=== PATIENT | male | born 1955 ===

== ENCOUNTER 2016-12-19 06:09 | Inpatient (IN) | payer OTHER ==
[2016-12-16 15:59] VITALS: BMI 25.7
[2016-12-19] MEDS ORDERED: Lactated Ringer's 1,000 ML IV ONE ×3 (07:00→12:15)
[2016-12-19] MEDS ORDERED: Succinylcholine 200 mg/10 ml Inj IV ONE (07:19)
[2016-12-19] MEDS ORDERED: Propofol 10 mg/ml Inj (20 ML) ONE (07:19)
[2016-12-19] MEDS ORDERED: Phenylephrine 10 mg/ml Inj ONE (07:19)
[2016-12-19] MEDS ORDERED: ePHEDrine 50 mg/ml Inj ONE (07:19)
[2016-12-19] MEDS ORDERED: Midazolam 2 MG/2 ML VIAL ONE (07:19)
[2016-12-19] MEDS ORDERED: Vecuronium 10 mg Inj ONE (07:21)
[2016-12-19] MEDS ORDERED: Absorbable Gelatin Sponge Size 100 ONE (07:24)
[2016-12-19] MEDS ORDERED: Thrombin Topical 5,000 IU Spray Kit ONE (07:24)
[2016-12-19] MEDS ORDERED: Bacitracin Ointment 30 GM TUBE ONE (07:25)
--- NOTE | 2016-12-19 07:32 | CP.PCM.HP ---
History of Present Illness - History of Present Illness History of Present Illness: CC: "I am having a knee surgery" HPI: Patient is a 61 YO Male with PMH of depression and arthritis is seen in [facility] unit for a procedure this AM. Patient had a R TKA in 2014 due to complications of arthritis but since the procedure the pt has been experiencing pain during ambulating, and has had limited range of motion in the affected knee. This AM, pt is scheduled for a revision of R TLA with Dr. Lizama. Denies chest pain, dyspnea, headache, dizziness, n/v/d/c. Pt is currently afebrile, and vs remain stable. Pt endorses feeling nervous because of his upcoming procedure. PMH: depression and arthritis PSH: R TKA 2014, cochlear surgery in the past SH: lives at home with , denies smoking, and illicit use of drugs FH: not sig Allergies: NKDA Present on Admission - Present on Admission Any Indicators Present on Admission: No Review of Systems - Constitutional Constitutional: As Per HPI - EENT Eyes: absent: Blurred Vision, Pain Ears: absent: Dizziness - Cardiovascular Cardiovascular: absent: Chest Pain, Dyspnea, Palpitations - Respiratory Respiratory: absent: Cough, Dyspnea - Gastrointestinal Gastrointestinal: absent: Abdominal Pain, Diarrhea, Vomiting - Genitourinary Genitourinary: absent: Difficulty Urinating, Dysuria - Musculoskeletal Musculoskeletal: absent: Back Pain, Limited Range of Motion - Neurological Neurological: absent: Dizziness, Headaches - Endocrine Endocrine: absent: Palpitations Past Patient History - Past Medical History & Family History Past Medical History?: Yes - Past Social History Smoking Status: Never Smoked Alcohol: Occasional Drugs: Denies Home Situation {Lives}: With Family - CARDIAC Hx Cardiac Disorders: No - PULMONARY Hx Respiratory Disorders: No - NEUROLOGICAL Hx Neurological Disorder: No - HEENT Hx HEENT Problems: Yes Hx Cataracts: Yes Hx Deafness: Yes - RENAL Hx Chronic Kidney Disease: No - ENDOCRINE/METABOLIC Hx Endocrine Disorders: No - HEMATOLOGICAL/ONCOLOGICAL Hx Blood Disorders: No - INTEGUMENTARY Hx Dermatological Problems: No - MUSCULOSKELETAL/RHEUMATOLOGICAL Hx Musculoskeletal Disorders: Yes Hx Arthritis: Yes - GASTROINTESTINAL Hx Gastrointestinal Disorders: No - GENITOURINARY/GYNECOLOGICAL Hx Genitourinary Disorders: No - PSYCHIATRIC Hx Psychophysiologic Disorder: Yes Hx Anxiety: Yes Hx Depression: Yes - SURGICAL HISTORY Hx Surgeries: Yes Hx Orthopedic Surgery: Yes (right total knee replacement) Other/Comment: back surgery. left ear implant - ANESTHESIA Hx Anesthesia: Yes Hx Anesthesia Reactions: No Hx Malignant Hyperthermia: No Has any member of the family had a problem w/ anesthesia?: No Meds Allergies/Adverse Reactions: Allergies Allergy/AdvReac Type Severity Reaction Status Date / Time No Known Allergies Allergy Verified 12/16/16 15:59 Physical Exam - Head Exam Head Exam: ATRAUMATIC, NORMOCEPHALIC - Eye Exam Eye Exam: EOMI, Normal appearance - ENT Exam ENT Exam: Mucous Membranes Moist - Respiratory Exam Respiratory Exam: Clear to Auscultation Bilateral. absent: Rales, Wheezes - Cardiovascular Exam Cardiovascular Exam: REGULAR RHYTHM, +S1, +S2 - GI/Abdominal Exam GI & Abdominal Exam: Hyperactive Bowel Sounds, Soft. absent: Distended, Guarding, Tenderness - Extremities Exam Extremities exam: Positive for: normal capillary refill, normal inspection. Negative for: pedal edema Additional comments: patient has a old anterior surgical scar from R TKA. well healed. limiting ROM in the R knee. Pain with flexion. - Neurological Exam Neurological exam: Alert, Oriented x3 - Psychiatric Exam Psychiatric exam: Normal Affect, Normal Mood Additional comments: Nervous for upcoming surgery - Skin Skin Exam: Dry, Intact, Normal Color, Warm Results - Vital Signs Recent Vital Signs: Last Vital Signs Temp 98.6 F 12/19/16 06:45 Pulse 73 12/19/16 06:45 Resp 18 12/19/16 06:45 BP 138/91 H 12/19/16 06:45 Pulse Ox 98 12/19/16 06:45 Assessment & Plan - Assessment and Plan (Free Text) Assessment: Patient is a 61 YO Male with PMH of depression and arthritis is seen in [facility] unit for a procedure this AM. Patient had a R TKA in 2014 due to complications of arthritis but since the procedure the pt has been experiencing pain during ambulating, and has had limited range of motion in the affected knee. This AM, pt is scheduled for a revision of R TLA with Dr. Lizama. Denies chest pain, dyspnea, headache, dizziness, n/v/d/c. Pt is currently afebrile, and vs remain stable. Pt endorses feeling nervous because of his upcoming procedure. EKG seen in chart is NSR with normal a HR No acute findings in CBC, BMP. Lipid panel shows dyslipidemia. Admit pt to [facility] 1. Revision of R TKA - pt is able to ambulate without assistance at home, limited by R knee pain - he is going for a moderate risk surgery and is a low cardiovascular risk pt. - pain medications 2. Depression - start home medications 3. DVT prophylaxis - start Lovenox post procedure
[2016-12-19] MEDS ORDERED: Dexamethasone 4 mg/1 ml ONE ×2 (07:45→09:24)
[2016-12-19 07:59] LABS: SQUAMOUS EPITHIAL < 1 /hpf (0-5); URINE BILIRUBIN NEGATIVE (NEGATIVE); URINE BLOOD MODERATE (NEGATIVE); URINE CLARITY CLEAR (Clear); URINE COLOR YELLOW (YELLOW); URINE GLUCOSE (UA) NEG (Normal); URINE LEUKOCYTE ESTERASE NEG Leu/uL (Negative); URINE NITRATE NEGATIVE (NEGATIVE); URINE PROTEIN NEGATIVE (NEGATIVE); URINE UROBILINOGEN 0.2-1.0 mg/dL (0.2-1.0)
[2016-12-19] MEDS ORDERED: Sodium Chloride 0.9% 1,000 ML IV SCH (08:00)
[2016-12-19] MEDS ORDERED: Sodium Chloride 0.9% 100 ML IV ONE (08:30)
[2016-12-19] MEDS ORDERED: Enoxaparin 40 mg Syringe SC SCH (09:00)
[2016-12-19] MEDS ORDERED: Pantoprazole 40 mg EC Tab PO SCH (09:00)
[2016-12-19 09:41] LABS: FLUID TYPE SYNOVIAL FLUID
[2016-12-19] MEDS ORDERED: Bacitracin 50,000 UNIT in SODIUM CHLORIDE 3,000 ML IR ONE (10:00)
[2016-12-19 10:31] LABS: FLUID TYPE SYNOVIAL FLUID
[2016-12-19 10:46] LABS: SF GROSS APPEARANCE CLOUDY (CLEAR); SYNOVIAL FLUID COMMENT SLIGHLY BLOODY
[2016-12-19 10:47] LABS: SYNOVIAL FLUID MONO/MACROPHAGE 12 % (0-0)
[2016-12-19 10:54] LABS: SF GROSS APPEARANCE CLEAR (CLEAR); SYNOVIAL FLUID COMMENT COLORLESS
[2016-12-19 11:54] LABS: SYNOVIAL FLUID MONO/MACROPHAGE 3 % (0-0)
[2016-12-19] MEDS ORDERED: Neostigmine Methylsulfate 2 MG/2 ML ML IV ONE (12:52)
[2016-12-19] MEDS ORDERED: Lactated Ringer's 1,000 ML IV SCH (13:13)
--- NOTE | 2016-12-19 14:02 | PCM.ANESB3 ---
Femoral Nerve Block - Femoral Nerve Block Date of Procedure: 12/19/16 Anesthesiologist: Julissa Mills Pre-Procedure Diagnosis: Failed Total Knee Revision Procedure Performed: Femoral Nerve Block Right - Procedure Femoral Nerve Block: The procedure was explained to the patient that it is for the post-operative pain management. Consent was obtained after a thorough discussion with the patient regarding the benefits and possible complications of local anesthetic block of the femoral nerve at the inguinal crease area. The patient was brought to the operating room and standard monitors were applied. Time-out was held with the circulating nurse to confirm the correct surgery and the appropriate block. After applying oxygen by nasal cannula and administering IV Sedation, patient was placed in supine position with fully extended lower extremities and the groin exposed. The femoral artery was then carefully palpated. The ultrasound transducer was then applied to this area in the transverse plane and the femoral nerve was visualized lateral to the femoral artery and underneath the fascia iliaca. After thorough identification, the inguinal crease area was prepped with Betadine solution three times and 1 % Lidocaine was injected subcutaneously for topical anesthesia. At this point, a #22 gauge Stimuplex 2-inch needle was inserted immediately lateral to the femoral artery pulse at the inguinal crease and advanced perpendicularly. The needle was inserted to the ultrasound transducer in-plane towards the femoral nerve in a [id number] direction. Needle advancement was performed carefully under direct ultrasound visualization. Nerve stimulator was used and twitch of the quadriceps muscle was obtained at current of __0.4___ MA. After negative aspiration, _15cc of _0.5% bupivacaine was injected. Under ultrasound guidance the local anesthetics were observed spreading below fascia iliaca and around the femoral nerve. The needle was removed intact and sterile dressing was applied. The patient had stable vital signs, was conscious and in no apparent distress. The patient tolerated the femoral nerve block well with stable vital signs and was prepared for subsequent surgery.
--- NOTE | 2016-12-19 15:00 | RAD ---
PROCEDURE: Right Knee Radiographs. HISTORY: post revision right TKR COMPARISON: None. FINDINGS: BONES: Status post revision of total knee arthroplasty. An intramedullary marcia traverses the midline knee joint. There are postsurgical changes of cemented total knee arthroplasty. There are 2 metallic screws in the medial tibial plateau. Bone alignment and mineralization are normal. There is no acute fracture or bone destruction. JOINTS: Status post TKA. JOINT EFFUSION: There is postoperative air in the periarticular soft tissues and anterior knee joint. OTHER FINDINGS: Skin chris are seen in mean the midline anteriorly. IMPRESSION: Status post revision of total knee arthroplasty, expected post operative changes without immediate complications.
--- NOTE | 2016-12-19 15:31 | PCM.SURG1 ---
Surgeon's Initial Post Op Note - Surgeon's Notes Surgeon: Alda Heading Matcher And Assembler: LEAH Willingham/2nd assist Jcarlos Dubois Type of Anesthesia: General Endo, Block Regional Anesthesia Administered By: Dr Julissa Mills/DR Asad rick Pre-Operative Diagnosis: Failed/Painful TKR R knee Operative Findings: Lossened femoral compopnenet (aseptic lossening). damage/ burnished patella componet. tricomparmtneal synovitis. posterior capsular contractrure. lateral patella retinacul;ar contracture Post-Operative Diagnosis: as above Operation Performed: Revision TKR R kbnee- 3compnents. ORIF tibial plateau faracture (medial). rem,oval; 3 TKR compnents. anterior and posterior synovoits. posterior cap[sular relaease. lateral patella release Specimen/Specimens Removed: synovium/failed TKR components. posterior capsule/ lateral patell retinaculum Estimated Blood Loss: EBL {In ML}: 100 Blood Products Given: N/A Drains Used: Hemovac Post-Op Condition: Fair Date of Surgery/Procedure: 12/19/16 Time of Surgery/Procedure: 09:05 (time in room/anaestjhesia indcuution time 7: 48 time in RR 1310)
--- NOTE | 2016-12-19 16:47 | PCM.ANESB2 ---
Popliteal Nerve Block - Popliteal Nerve Block Date of Procedure: 12/19/16 Anesthesiologist: Julissa Mills Pre-Procedure Diagnosis: Failed Right Total Knee Replacement Procedure Performed: Popliteal Nerve Block Right - Procedure Popliteal Nerve Block: This procedure was explained to the patient that it is for post-operative pain management. Consent was obtained after a thorough discussion with the patient regarding the benefits and possible complications of local anesthetic block of the sciatic nerve at the popliteal level. The patient was brought to the operating room and standard monitors are applied. Time-out was held with the circulating nurse to confirm the correct surgery and the appropriate block. After applying oxygen by nasal cannula and administering IV Sedation, patient's operative leg was gently raised and supported and the groove in between the biceps femoris and vastus lateralis muscles was carefully palpated. The skin approximately 8cm above the popliteal crease was then marked. The ultrasound transducer was then applied to the posterior thigh approximately 8cm above the popliteal crease in the transverse plane and the sciatic nerve before its division was visualized lateral to the popliteal artery and in between the bicep femoris and semimembranosus/semitendinosus muscles. After identification, the lateral portion of the thigh was prepped with Betadine solution three times and Lidocaine 1% was injected subcutaneously for topical anesthesia. At this point, a # 21 gauge Stimuplex insulated 4 inch needle was inserted into pre-marked area and advanced in a perpendicular direction. The needle was inserted above the ultrasound transducer in-plane towards the sciatic nerve in a [id number] direction. Needle advancement was performed carefully under direct ultrasound visualization. Nerve stimulator was used and dorsiflexion of the _right____ foot was elicited at a current of __0.4 MA. After repeated negative aspiration, _15cc of _0.5 % ___bupivacaine was injected. Under ultrasound guidance the local anesthetics were observed tenting the epidural sheath and surrounding the roots of the sciatic nerve. The needle was removed intact and sterile dressing was applied. The patient tolerated the popliteal nerve block well with stable vital signs and was subsequently prepared for the surgery.
[2016-12-19] MEDS: ceFAZolin 2 GM in Sodium Chloride 0.9% 100 ML IVPB SCH (17:58)
[2016-12-20] MEDS: ceFAZolin 2 GM in Sodium Chloride 0.9% 100 ML IVPB SCH ×2 (00:06→09:46)
[2016-12-20 02:10] VITALS: O2SAT 100
--- NOTE | 2016-12-20 08:21 | CP.PCM.PN ---
Subjective - Date & Time of Evaluation Date of Evaluation: 12/20/16 Time of Evaluation: 08:15 - Subjective Subjective: S- pt with minimal post op discomfort Objective - Vital Signs/Intake and Output Vital Signs (last 24 hours): Temp Pulse Resp BP Pulse Ox 97.9 F 75 19 107/65 100 12/20/16 00:00 12/20/16 00:00 12/20/16 00:00 12/20/16 00:00 12/20/16 00:00 - Medications Medications: Current Medications Aripiprazole (Abilify) 10 mg PO DAILY [facility] Clonazepam (Klonopin) 1 mg PO DAILY [facility] Docusate Sodium (Colace) 100 mg PO BID [facility] Home Med (Desvenlafaxine Succinate [Pristiq]) 100 mg PO DAILY [facility] Hydromorphone HCl (Dilaudid 0.2 Mg/Ml Computer Network Engineer) 0 mg IV PRN PRN; Protocol PRN Reason: Pain, moderate (4-7) Last Admin: 12/19/16 15:00 Dose: 0 mg Sodium Chloride (Sodium Chloride 0.9%) 1,000 mls @ 100 mls/hr IV .Q10H [facility] Last Admin: 12/20/16 06:41 Dose: 100 mls/hr Lactated Ringer's (Lactated Ringer's) 1,000 mls @ 75 mls/hr IV .[id number] [facility] Cefazolin Sodium 2 gm/ Sodium (Chloride) 100 mls @ 100 mls/hr IVPB Q8 [facility] Stop: 12/20/16 09:59 Last Admin: 12/20/16 00:06 Dose: 100 mls/hr Ondansetron HCl (Zofran Inj) 4 mg IVP Q6 PRN PRN Reason: Nausea/Vomiting Last Admin: 12/19/16 19:17 Dose: 4 mg Pantoprazole Sodium (Protonix Ec Tab) 40 mg PO DAILY [facility] Quetiapine Fumarate (Seroquel) 50 mg PO DAILY [facility] - Skin Additional comments: Obj Musculoskekltal stance/gait- defrred R knee immobilizer intact dressing dry andf intact orthopedically stable Assessment and Plan - Assessment and Plan (Free Text) Assessment: A- S/P rEVISION TKR P- orthopedically stable physio- toe touch weight bearing with walker active passive ROM (gentle) CPM as per orders
[2016-12-20 08:39] LABS: HEMOGLOBIN 9.6 g/dL (12.0-18.0); MEAN CELL VOLUME 92.7 fl (80.0-94.0); MEAN CORPUSCULAR HEMOGLOBIN 30.9 pg (27.0-31.0); MEAN CORPUSCULAR HGB CONC 33.3 g/dL (33.0-37.0); RBC 3.12 Mil/uL (4.40-5.90); RED CELL DISTRIBUTION WIDTH 13.9 % (11.5-14.5); WHITE BLOOD COUNT 8.8 K/uL (4.8-10.8)
[2016-12-20 08:47] LABS: BLOOD UREA NITROGEN 15 mg/dl (9-20); CALCIUM 7.9 mg/dL (8.4-10.2); GFR AFRICAN-AMERICAN > 60; GFR NON-AFRICAN AMERICAN > 60
[2016-12-20] MEDS ORDERED: Pantoprazole 40 mg EC Tab PO SCH (09:00)
--- NOTE | 2016-12-20 09:41 | CP.PCM.CON ---
History of Present Illness - History of Present Illness History of Present Illness: THE PATIENT IS A 61 YEAR OLD MALE WITH A RIGHT TKR IN 2015 AND HE WAS ADMITTED TO [facility] AND UNDERWENT A REVISION BY DR JASSI ALBERTO. HE ALSO HAS A HISTORY OF BACK PROBLEMS AND DEPRESSION. HE DENIES ANY HISTORY OF HYPERTENSION, CAD OR CHEST PAIN. I WAS ASKED BY DR KEENE TO FOLLOW THE PATIENT. Past Patient History - Past Medical History & Family History Past Medical History?: Yes - Past Social History Smoking Status: Never Smoked Alcohol: Occasional Drugs: Denies Home Situation {Lives}: With Family - CARDIAC Hx Cardiac Disorders: No - PULMONARY Hx Respiratory Disorders: No - NEUROLOGICAL Hx Neurological Disorder: No - HEENT Hx HEENT Problems: Yes Hx Cataracts: Yes Hx Deafness: Yes - RENAL Hx Chronic Kidney Disease: No - ENDOCRINE/METABOLIC Hx Endocrine Disorders: No - HEMATOLOGICAL/ONCOLOGICAL Hx Blood Disorders: No - INTEGUMENTARY Hx Dermatological Problems: No - MUSCULOSKELETAL/RHEUMATOLOGICAL Hx Musculoskeletal Disorders: Yes Hx Arthritis: Yes - GASTROINTESTINAL Hx Gastrointestinal Disorders: No - GENITOURINARY/GYNECOLOGICAL Hx Genitourinary Disorders: No - PSYCHIATRIC Hx Psychophysiologic Disorder: Yes Hx Anxiety: Yes Hx Depression: Yes - SURGICAL HISTORY Hx Surgeries: Yes Hx Orthopedic Surgery: Yes (right total knee replacement) Other/Comment: back surgery. left ear implant - ANESTHESIA Hx Anesthesia: Yes Hx Anesthesia Reactions: No Hx Malignant Hyperthermia: No Has any member of the family had a problem w/ anesthesia?: No Meds Allergies/Adverse Reactions: Allergies Allergy/AdvReac Type Severity Reaction Status Date / Time No Known Allergies Allergy Verified 12/16/16 15:59 - Medications Medications: Current Medications Aripiprazole (Abilify) 10 mg PO DAILY [facility] Clonazepam (Klonopin) 1 mg PO DAILY [facility] Docusate Sodium (Colace) 100 mg PO BID [facility] Home Med (Desvenlafaxine Succinate [Pristiq]) 100 mg PO DAILY [facility] Hydromorphone HCl (Dilaudid 0.2 Mg/Ml Armored Car Guard And Driver) 0 mg IV PRN PRN; Protocol PRN Reason: Pain, moderate (4-7) Last Admin: 12/19/16 15:00 Dose: 0 mg Sodium Chloride (Sodium Chloride 0.9%) 1,000 mls @ 100 mls/hr IV .Q10H [facility] Last Admin: 12/20/16 06:41 Dose: 100 mls/hr Lactated Ringer's (Lactated Ringer's) 1,000 mls @ 75 mls/hr IV .[id number] [facility] Cefazolin Sodium 2 gm/ Sodium (Chloride) 100 mls @ 100 mls/hr IVPB Q8 [facility] Stop: 12/20/16 09:59 Last Admin: 12/20/16 00:06 Dose: 100 mls/hr Ondansetron HCl (Zofran Inj) 4 mg IVP Q6 PRN PRN Reason: Nausea/Vomiting Last Admin: 12/19/16 19:17 Dose: 4 mg Pantoprazole Sodium (Protonix Ec Tab) 40 mg PO DAILY [facility] Quetiapine Fumarate (Seroquel) 50 mg PO DAILY [facility] Physical Exam - Respiratory Exam Respiratory Exam: Clear to Auscultation Bilateral - Cardiovascular Exam Cardiovascular Exam: REGULAR RHYTHM, +S1, +S2 - Additional Findings Additional findings: EKG NSR CXR NAD Results - Vital Signs Recent Vital Signs: Last Vital Signs Temp 98.7 F 12/20/16 08:29 Pulse 67 12/20/16 08:29 Resp 20 12/20/16 08:29 BP 115/66 12/20/16 08:29 Pulse Ox 100 12/20/16 08:29 - Labs Result Diagrams: 12/20/16 07:10 12/20/16 07:10 Labs: Laboratory Results - last 24 hr 12/19/16 12/19/16 12/19/16 07:44 09:35 10:20 WBC RBC Hgb Hct MCV MCH MCHC RDW Plt Count Sodium Potassium Chloride Carbon Dioxide Anion Gap BUN Creatinine Est GFR ( Amer) Est GFR (Non-Af Amer) Random Glucose Calcium Fluid Type Synovial fluid Synovial fluid Synovial WBC 116.0 27.0 Synovial RBC 1611.0 H 864.0 H Synovial Neutrophils 8.0 H 6.0 H Synovial Lymphocytes 30.0 H 11.0 H Synov Monos/Macrophage 12 H 3 H Synovial Fluid Comment Slighly bloody Colorless Blood Type Confirm O POSITIVE 12/20/16 12/20/16 07:10 07:10 WBC 8.8 RBC 3.12 L Hgb 9.6 L Hct 28.9 L MCV 92.7 MCH 30.9 MCHC 33.3 RDW 13.9 Plt Count 188 Sodium 136 Potassium 4.2 Chloride 104 Carbon Dioxide 27 Anion Gap 9 L BUN 15 Creatinine 1.0 Est GFR ( Amer) > 60 Est GFR (Non-Af Amer) > 60 Random Glucose 118 H Calcium 7.9 L Fluid Type Synovial WBC Synovial RBC Synovial Neutrophils Synovial Lymphocytes Synov Monos/Macrophage Synovial Fluid Comment Blood Type Confirm Assessment & Plan - Assessment and Plan (Free Text) Assessment: REVISION OF RIGHT TKR DEPRESSION Plan: FOR SUBACUTE REHAB
[2016-12-20] MEDS ORDERED: Oxycodone/Acetaminophen 5/325 mg Tab PO PRN ×2 (11:32)
--- NOTE | 2016-12-20 13:13 | CP.PCM.PN ---
Subjective - Date & Time of Evaluation Date of Evaluation: 12/20/16 Time of Evaluation: 11:25 - Subjective Subjective: Patient is seen and examined beside this AM. Citizen Of [place] interpretation used ([id number] ). Patient states that he feels well. In no pain this time, pain is well controlled by medication. Denies chest pain, dyspnea, palpations, fever, chills , n/v/c/d. Objective - Vital Signs/Intake and Output Vital Signs (last 24 hours): Temp Pulse Resp BP Pulse Ox 98.7 F 67 20 115/66 100 12/20/16 08:29 12/20/16 08:29 12/20/16 08:29 12/20/16 08:29 12/20/16 08:29 - Medications Medications: Current Medications Aripiprazole (Abilify) 10 mg PO DAILY COUNT INCLUDES THE [facility] Last Admin: 12/20/16 12:19 Dose: Not Given Clonazepam (Klonopin) 1 mg PO DAILY COUNT INCLUDES THE [facility] Last Admin: 12/20/16 09:54 Dose: 1 mg Docusate Sodium (Colace) 100 mg PO BID COUNT INCLUDES THE [facility] Last Admin: 12/20/16 09:56 Dose: 100 mg Home Med (Desvenlafaxine Succinate [Pristiq]) 100 mg PO DAILY COUNT INCLUDES THE [facility] Sodium Chloride (Sodium Chloride 0.9%) 1,000 mls @ 100 mls/hr IV .Q10H COUNT INCLUDES THE [facility] Last Admin: 12/20/16 06:41 Dose: 100 mls/hr Lactated Ringer's (Lactated Ringer's) 1,000 mls @ 75 mls/hr IV .[id number] COUNT INCLUDES THE [facility] Ondansetron HCl (Zofran Inj) 4 mg IVP Q6 PRN PRN Reason: Nausea/Vomiting Last Admin: 12/19/16 19:17 Dose: 4 mg Oxycodone/Acetaminophen (Percocet 5/325 Mg Tab) 1 tab PO Q4 PRN PRN Reason: Pain, moderate (4-7) Stop: 12/23/16 11:33 Oxycodone/Acetaminophen (Percocet 5/325 Mg Tab) 2 tab PO Q6 PRN PRN Reason: Pain, severe (8-10) Stop: 12/23/16 11:33 Pantoprazole Sodium (Protonix Ec Tab) 40 mg PO DAILY COUNT INCLUDES THE [facility] Last Admin: 12/20/16 09:56 Dose: 40 mg Quetiapine Fumarate (Seroquel) 50 mg PO DAILY [facility] - Labs Labs: 12/20/16 07:10 12/20/16 07:10 - Constitutional Appears: Well - Eye Exam Eye Exam: EOMI, Normal appearance - Neck Exam Neck Exam: Full ROM - Respiratory Exam Respiratory Exam: Clear to Ausculation Bilateral, NORMAL BREATHING PATTERN. absent: Wheezes, Respiratory Distress - Cardiovascular Exam Cardiovascular Exam: REGULAR RHYTHM, +S1, +S2 - GI/Abdominal Exam GI & Abdominal Exam: Soft, Normal Bowel Sounds. absent: Guarding, Tenderness - Extremities Exam Extremities Exam: Normal Capillary Refill. absent: Pedal Edema Additional comments: RLE JEFFREY wrap from thigh to ankle. Pt able to dorsiflex and planter flex R feet. ROM intact in LLE. Pedal pulses present bilaterally. - Neurological Exam Neurological Exam: Alert, Awake - Psychiatric Exam Psychiatric exam: Normal Affect, Normal Mood - Skin Skin Exam: Dry, Intact, Normal Color, Warm Assessment and Plan - Assessment and Plan (Free Text) Assessment: Patient is a 61 YO Male with PMH of depression and arthritis is seen in MEDSURG unit for a procedure this AM. Patient had a R TKA in 2014 due to complications of arthritis but since the procedure the pt has been experiencing pain during ambulating, and has had limited range of motion in the affected knee. Pt is currently afebrile, and vs remain stable. EKG seen in chart is NSR with normal a HR No acute findings in CBC, BMP. Lipid panel shows dyslipidemia (labs seen in pt chart). S/p R Revision TKA with Dr. Lizama (12/19) Pt is toe touch weight bearing with walker 1. Revision of R TKA - S/p R TKA - d/c of Dilaudid pump - start Oxycodone Q4 and Q6 - gram stain negative; follow up wound culture - per physical therapy, pt is touch toe weight bearing with walker 2. Depression - continue home medications 3. DVT prophylaxis - continue Lovenox - continue scds 4. Stress ulcer prophylaxis - continue PPI
--- NOTE | 2016-12-20 14:11 | CP.PCM.DIS ---
Provider - Provider Date of Admission: 12/19/16 07:57 Attending physician: Nara Ruffin MD Primary care physician: Dionte Lizama III, MD Time Spent in preparation of Discharge (in minutes): 20 Diagnosis - Discharge Diagnosis (1) Status post revision of total knee Status: Acute Hospital Course - Lab Results Lab Results: Micro Results 12/19/16 Unknown Knee - Right Gram Stain - Final 12/19/16 Unknown Knee - Right Gram Stain - Final 12/19/16 Unknown Knee - Right Gram Stain - Final 12/19/16 Unknown Knee - Right Gram Stain - Final 12/19/16 Unknown Knee - Right Gram Stain - Final 12/19/16 Unknown Knee - Right Gram Stain - Final 12/19/16 Unknown Knee - Right Gram Stain - Final 12/19/16 Unknown Knee - Right Gram Stain - Final 12/19/16 10:20 Synovial Fluid Gram Stain - Final 12/19/16 09:35 Other: Please Indicate Gram Stain - Final Most Recent Lab Values WBC 8.8 K/uL (4.8-10.8) 12/20/16 07:10 RBC 3.12 Mil/uL (4.40-5.90) L 12/20/16 07:10 Hgb 9.6 g/dL (12.0-18.0) L 12/20/16 07:10 Hct 28.9 % (35.0-51.0) L 12/20/16 07:10 MCV 92.7 fl (80.0-94.0) 12/20/16 07:10 MCH 30.9 pg (27.0-31.0) 12/20/16 07:10 MCHC 33.3 g/dL (33.0-37.0) 12/20/16 07:10 RDW 13.9 % (11.5-14.5) 12/20/16 07:10 Plt Count 188 K/uL (130-400) 12/20/16 07:10 Sodium 136 mmol/l (132-148) 12/20/16 07:10 Potassium 4.2 MMOL/L (3.6-5.0) 12/20/16 07:10 Chloride 104 mmol/L (98-107) 12/20/16 07:10 Carbon Dioxide 27 mmol/L (22-30) 12/20/16 07:10 Anion Gap 9 (10-20) L 12/20/16 07:10 BUN 15 mg/dl (9-20) 12/20/16 07:10 Creatinine 1.0 mg/dL (0.8-1.5) 12/20/16 07:10 Est GFR ( Amer) > 60 12/20/16 07:10 Est GFR (Non-Af Amer) > 60 12/20/16 07:10 Random Glucose 118 mg/dL (75-110) H 12/20/16 07:10 Calcium 7.9 mg/dL (8.4-10.2) L 12/20/16 07:10 Urine Color Yellow (YELLOW) 12/19/16 07:46 Urine Clarity Clear (Clear) 12/19/16 07:46 Urine pH 6.0 (5.0-8.0) 12/19/16 07:46 Ur Specific [place] 1.025 (1.003-1.030) 12/19/16 07:46 Urine Protein Negative mg/dL (NEGATIVE) 12/19/16 07:46 Urine Glucose (UA) Neg mg/dL (Normal) 12/19/16 07:46 Urine Ketones 20 mg/dL (NEGATIVE) 12/19/16 07:46 Urine Blood Moderate (NEGATIVE) 12/19/16 07:46 Urine Nitrate Negative (NEGATIVE) 12/19/16 07:46 Urine Bilirubin Negative (NEGATIVE) 12/19/16 07:46 Urine Urobilinogen 0.2-1.0 mg/dL (0.2-1.0) 12/19/16 07:46 Ur Leukocyte Esterase Neg Yuri/uL (Negative) 12/19/16 07:46 Urine RBC (Auto) 18 /hpf (0-3) H 12/19/16 07:46 Urine Microscopic WBC < 1 /hpf (0-5) 12/19/16 07:46 Ur Squamous Epith Cells < 1 /hpf (0-5) 12/19/16 07:46 Fluid Type Synovial fluid 12/19/16 10:20 Synovial WBC 27.0 /mm3 (0.0-150.0) 12/19/16 10:20 Synovial RBC 864.0 /mm3 (0.0-0.0) H 12/19/16 10:20 Synovial Neutrophils 6.0 % (0-0) H 12/19/16 10:20 Synovial Lymphocytes 11.0 % (0-0) H 12/19/16 10:20 Synov Monos/Macrophage 3 % (0-0) H 12/19/16 10:20 Synovial Fluid Comment Colorless 12/19/16 10:20 Blood Type O POSITIVE 12/19/16 06:25 Blood Type Confirm O POSITIVE 12/19/16 07:44 Antibody Screen Negative 12/19/16 06:25 BBK History Checked No verified bt 12/19/16 06:25 - Hospital Course Hospital Course: Patient is a 61 YO Male with PMH of depression and arthritis is seen in [facility] unit for a procedure this AM. Patient had a R TKR in 2014 due to complications of arthritis but since the procedure the pt has been experiencing pain during ambulating, and has had limited range of motion in the affected knee. Patient is seen and examined beside this AM. Latvian interpretation used ([id number]). Patient states that he feels no pain at this time, pain is well controlled by medication. Denies chest pain, dyspnea, palpations, fever, chills, n/v/c/d. Pt is currently afebrile, and VS remain stable. EKG seen in chart is NSR with normal a HR No acute findings in CBC, BMP. Lipid panel shows dyslipidemia (labs seen in pt chart). S/p R Revision TKR with Dr. Lizama (12/19) Pt is toe touch weight bearing with walker 1. Revision of R TKR - S/p R TKR - d/c of Dilaudid pump - start Oxycodone Q4 and Q6 - start colace - gram stain negative; wound culture negative - per physical therapy, pt is touch toe weight bearing with walker - CPM per ortho 2. Depression - continue home medications 3. Acute blood loss anemia - Hb/Hct 9.6/28.9 - medically stable - continue to monitor 4. DVT prophylaxis - continue Lovenox Patient is being transferred to Subacute rehab for physical therapy after revision of R TKR. Discharge Exam - Head Exam Head Exam: ATRAUMATIC, NORMOCEPHALIC - Eye Exam Eye Exam: EOMI, Normal appearance - ENT Exam ENT Exam: Mucous Membranes Moist - Neck Exam Neck exam: Full Rom - Respiratory Exam Respiratory Exam: Clear to PA & Lateral, NORMAL BREATHING PATTERN. absent: Wheezes - Cardiovascular Exam Cardiovascular Exam: REGULAR RHYTHM, +S1, +S2 - GI/Abdominal Exam GI & Abdominal Exam: Firm, Normal Bowel Sounds, Soft. absent: Guarding, Tenderness - Extremities Exam Extremities exam: normal capillary refill, pedal pulses present Additional comments: RLE JEFFREY wrap from thigh to ankle. Pt able to dorsiflex and planter flex R feet. ROM intact in LLE. Pedal pulses present bilaterally. - Neurological Exam Neurological exam: Alert, Oriented x3 - Psychiatric Exam Psychiatric exam: Normal Affect, Normal Mood - Skin Skin Exam: Dry, Intact, Normal Color, Warm Discharge Plan - Discharge Medications Prescriptions: Enoxaparin [Lovenox] 40 mg SQ DAILY #30 syr - Follow Up Plan Condition: GOOD Disposition: REHAB FACILITY/REHAB UNIT Patient education suggested?: Yes Instructions: Revision Total Joint Arthroplasty (DC), Peripheral Nerve Block ( DC) Additional Instructions: Please come back to ED if symptoms worsen Follow up with Dr. Lizama within 10 days Continue working with PT Continue using incentive spirometry Referrals: Dionte Lizama III, MD [Primary Care Provider] -
[2016-12-20 16:04] VITALS: BP 128/75; PULSE 80; RESP 18; TEMP 98.5
--- NOTE | 2016-12-21 02:28 | OP ---
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 POSTOPERATIVE DIAGNOSES: 1. 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 2. Synovitis. 3. 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 PROCEDURE: 1. Revision right total knee replacement. 2. Open reduction and internal fixation of the medial tibial plateau fracture. 3. Removal of total knee components. 4. Synovectomy, anterior and posterior. 5. Posterior capsular release. 6. Lateral patellar retinacular release. SURGEON: Dionte Lizama MD CHARGE ACCOUNT CLERK: ANDREAS Jones SECOND SUBSTATION MAINTENANCE TECHNICIAN: Jcarlos Dubois. TYPE OF ANESTHESIA: General endotracheal anesthesia. ESTIMATED BLOOD LOSS: Approximately 75 mL. COMPLICATIONS: No complications. DRAINS: No drains. OPERATIVE INDICATION: Alvaro Rodarte is a gentleman who was operated on [facility] approximately a year and a half ago for total knee replacement arthroplasty. The patient has had persistent pain since the time of the original surgery/index arthroplasty. The patient is scanned. The patient has significant pain with restricted range of motion, marked tenderness in the area of the femoral component, marked effusion. Pros, cons, risks, and benefits of the surgery approach was discussed. Possibility of mechanical failure, infection, thromboembolic disease, secondary or tertiary surgery was discussed. The patient *------* discomfort and wished the surgery to be accomplished. The concept of possible sepsis is discussed, which will be decided at the time of surgery with a stat Gram-stain, number of white cell per high powered field. DESCRIPTION OF PROCEDURE: After having obtained informed consent in the above fashion in the presence of his through a culturally competent marquetry worker, Geno, after having obtained informed consent after having identified side, site, and procedure and a critical pause/timeout after the satisfactory induction of the anesthetic. After having identified side, site and procedure, the right lower extremity was prepped and pre-draped in the usual fashion for lower extremity surgery. The tourniquet had been applied, but is not yet inflated. After exsanguinating the limbs with 6 inch Esmarch bandage, the tourniquet which had been applied is inflated to 350 mmHg. The initial incision is extended 2 fingerbreadths proximally and 2 fingerbreadths distally. This having been accomplished, the skin incision is carried down through the skin and subcutaneous tissue and ellipse of skin is removed. At this point in time, the skin and subcutaneous were identified. A medial arthrotomy is accomplished. The patella is everted. The knee is flexed. Great care is taken to preserve the patellar ligament insertion. Medial arthrotomy having been accomplished, a lateral patellar retinacular release is accomplished. There was found to be exuberant contractures and synovitis. There is a posterior capsular contracture and a lateral patellar retinacular contracture. The lateral patellar retinaculum is released, the patella is everted. There is found to be eburnation and burnishment of the patella. There is found to be of loosened patellar component. At this point in time, anterior synovectomy is accomplished followed by posterior synovectomy. The tibial polyethylene is removed and at this point in time, anterior and posterior synovectomies having being accomplished, lateral patellar retinacular release having been accomplished, the patella is everted and the knee is flexed. Attention was turned to the interface of the femoral side between the cement and the component. This is developed using a micro sagittal saw and the AccuDraw. This having been accomplished, the wound is thoroughly irrigated and again the interface between the cement and component is developed using the AccuDraw. This having been accomplished, further development *------* is accomplished. At this point in time, excess cement is removed. The interface is loosened and the femoral component is removed. Prior to removing the femoral component, the position of the joint line is marked using the Exactech measuring device. Attention is now turned to the tibia. The same process is initiated using the saw, the interface between the component and the metal is developed anteriorly, posteriorly, medially, and laterally. This is followed by the AccuDraw and this is a rather arduous and tedious process. The tibial component is removed. There was found to be a fracture with essentially minimal displacement of the tibial plateau laterally. This having been accomplished, the wound is thoroughly irrigated and the fracture is reduced. The fracture is curetted. There is, in all probability, a defect there prior to removal of the tibial component. The tibia is removed of all cement. The fracture is reduced and held using a bone holding clamp. An open reduction and internal fixation of the medial tibial plateau fracture is accomplished with drilling with a 2.5 drill bit followed by sounding and introduction of the appropriate cancellous screw. The fixation is found to be excellent. At this point in time, the tibial osteotomy is accomplished using the external tibial guide at neutral degrees varus and valgus and anterior and posterior. The tibial cut having been accomplished, attention was turned to the proximal femur. The proximal femur is prepared *------* rotation of the lateral aspect of the tibial condyle, mid malleolar axis, medial third of the tibial tuberosity. Attention was turned to the femur and intramedullary canal was found. Sequential reaming to 12 mm is accomplished. Distal cut is set to 2 degrees of valgus and the distal cut is 5 degrees additional distal augment. This having been accomplished, the wound was thoroughly irrigated. The cut having been accomplished, anterior and posterior, the 4-in-1 block is placed along the epicondylar axis. Anterior and posterior osteotomies were accomplished as well as chamfer cuts. Lateral patellar retinacular release having been accomplished, the laminar spread was placed, the posterior capsule was tensed, and the posterior capsule is released. The posterior capsule having been released, the posterior capsule is elevated. The wound is thoroughly irrigated. Hemostasis controlled with the Aquamantys in the area of the posterior capsule, lateral patellar retinaculum, and medial aspect as well. The wound is thoroughly irrigated. Anterior and posterior synovectomy is accomplished. Medial and lateral meniscectomy is accomplished as well as the cruciate ligaments were excised. The posterior capsule is released, the portion is excised and the posterior capsule is elevated. This having been accomplished, the notch cut on the femur having been accomplished, trying with the stem femoral component, stem tibial tray, and 15 mm polyethylene was found to be stable in all planes. The CCK insert is employed. The wound is thoroughly irrigated. Attention is turned to the patella. Since it was so difficult to get the components out, the tourniquet is deflated. Hemostasis controlled with the electrocautery and the Aquamantys. Attention was turned to the patella, patellar osteotomy is accomplished. There is found to be a terribly undersized patellar component. The patella is prepared and reamed to a 35-mm patellar component. Previously, it looks like a 29 mm had been used and had failed even though it was medialized. This having been accomplished, the wound is thoroughly irrigated. Trying and accomplished, there is found to be excellent patellar balance. Flexion and extension balance having been accomplished, attention is now turned to the cementation. The tibia, femur, and patellar prepared with [place]. The #2 stem tibial component and #3 stem femoral component is employed, cemented, the 35 mm patella is cemented, 35 mm tibial polyethylene, CCK type. The knee is reduced and found to be stable in all planes. The wound is thoroughly irrigated. Hemostasis controlled. Closure is in layers of an 8 inch Hemovac drain using #1 Vicryl, #2 FiberWire followed by 0 Quill, 2-0 Vicryl, chris and skin over an 8 inch suction Hemovac drain, Aashish Gustafson compression dressing, and knee mobilizers applied. Dionte Lizama MD
== END 2016-12-20 22:23 | DRG 467 ==
LOC: H.OPSURG 06:09 → H.MEDSURG1 07:57
PROVIDERS: ADMIT Hospitalist; ATTEND Hospitalist
PROC: 3E0T33Z Introduction of Anti-inflammatory into Peripheral Nerves and Plexi, Percutaneous Approach (ICD-10-PCS; 2016-12-19)
PROC: 0SPC0JZ Removal of Synthetic Substitute from Right Knee Joint, Open Approach (ICD-10-PCS; principal; 2016-12-19 07:45)
PROC: 0SRC0J9 Replacement of Right Knee Joint with Synthetic Substitute, Cemented, Open Approach (ICD-10-PCS; 2016-12-19 07:45)
PROC: 3E0T3BZ Introduction of Anesthetic Agent into Peripheral Nerves and Plexi, Percutaneous Approach (ICD-10-PCS; 2016-12-19 07:45)
DX: T84.84XA Pain due to internal orthopedic prosthetic devices, implants and grafts, initial encounter (principal); D62 Acute posthemorrhagic anemia; T84.032A Mechanical loosening of internal right knee prosthetic joint, initial encounter; M97.11XA Periprosthetic fracture around internal prosthetic right knee joint, initial encounter; M96.671 Fracture of tibia or fibula following insertion of orthopedic implant, joint prosthesis, or bone plate, right leg; M65.861 Other synovitis and tenosynovitis, right lower leg; M25.561 Pain in right knee; F32.9 Major depressive disorder, single episode, unspecified; E78.5 Hyperlipidemia, unspecified; Z96.651 Presence of right artificial knee joint; M19.90 Unspecified osteoarthritis, unspecified site; H91.92 Unspecified hearing loss, left ear; Y79.2 Prosthetic and other implants, materials and accessory orthopedic devices associated with adverse incidents; Y83.1 Surgical operation with implant of artificial internal device as the cause of abnormal reaction of the patient, or of later complication, without mention of misadventure at the time of the procedure